=== PATIENT | female | born 1960 | race African-American/Black ===

== ENCOUNTER 2017-11-21 17:23 | Inpatient (IN) | payer MEDICAID, OTHER ==
[~2017-11-21] VITALS: Ht 170.2 cm; Wt 105.2 kg
[2017-11-21] MEDS ORDERED: LISI-661 PO (17:31)
[2017-11-21] MEDS ORDERED: HYDR25TA PO (17:31)
[2017-11-21 18:49] LABS: BASOPHILS % (AUTO) 0.3 % (0.0-2.0); EOSINOPHILS % (AUTO) 2.3 % (1.0-6.0); HEMOGLOBIN 13.4 g/dL (12.0-16.0); LYMPHOCYTES # (AUTO) 1.1 K/uL (1.0-4.8); LYMPHOCYTES % (AUTO) 32.2 % (22.0-44.0); MEAN CORPUSCULAR HGB CONC 33.6 G/dL (31.0-37.0); MEAN CORPUSCULAR VOLUME 87 fL (80-100); MONOCYTES # (AUTO) 0.3 K/uL (0.1-1.0); MONOCYTES % (AUTO) 9.5 % (2.0-9.0); NEUTROPHILS # (AUTO) 1.9 K/uL (1.8-7.7); NEUTROPHILS % (AUTO) 55.7 % (40.0-70.0); PLATELET COUNT (AUTO) 170 K/uL (150-450); RED BLOOD CELL COUNT(AUTO) 4.62 MIL/uL (4.00-5.20); RED CELL DISTRIBUTION WIDTH 14.4 % (11.5-14.5)
[2017-11-21 19:00] LABS: ANION GAP 9 mmol/L (8-16); CALCIUM, TOTAL 9.1 mg/dL (8.8-10.5); CARBON DIOXIDE 29 mmol/L (22-29); CHLORIDE 99 mmol/L (98-107); CREATININE 0.78 mg/dL (0.60-1.30); GLOMERULAR FILTR. RATE CALC > 60 mL/min (>60); GLUCOSE,RANDOM 139 mg/dL (70-110); POTASSIUM 3.1 mmol/L (3.5-5.1); SODIUM SERUM 137 mmol/L (136-145); UREA NITROGEN, BLOOD 7 mg/dL (7-18)
[2017-11-21 19:07] LABS: ALANINE AMINOTRANSFERASE 34 U/L (12-78); ALBUMIN 3.7 g/dL (3.4-5.0); ALKALINE PHOSPHATASE 75 U/L (46-116); ASPARTATE AMINOTRANSFERASE 51 U/L (15-37); BILIRUBIN,TOTAL 0.5 mg/dL (0.1-1.0)
[2017-11-21] MEDS ORDERED: POTASSIUM CHLORIDE 20 MEQ ER TABLET PO ONE (19:45)
[2017-11-21] MEDS: TraMADol HCL 50 MG TABLET PO ONE ×2 (19:47→19:54)
[2017-11-21] MEDS ORDERED: IBUPROFEN 600 MG TABLET PO ONE (20:00)
[2017-11-21] MEDS ORDERED: HALOPERIDOL 5 MG TABLET PO PRN (21:15)
[2017-11-21] MEDS ORDERED: LORazepam 2 MG TABLET PO PRN (21:15)
[2017-11-21] MEDS ORDERED: ZOLPIDEM TARTRATE 10 MG TABLET PO PRN (21:15)
[2017-11-22] VITALS: BP 132/89
[2017-11-22] MEDS ORDERED: INFLUENZA VIRUS VACCINE QVS 2017-18 (3YR+)/PF 60 MCG/0.5 ML SYRINGE IM ONE (02:00)
[2017-11-22 08:12] VITALS: BP 126/70
[2017-11-22 08:18] LABS: HEMOGLOBIN A1C 5.9 % (4.5-6.2)
[2017-11-22 08:36] LABS: FREE T4 (FREE THYROXINE) 1.03 ng/dL (0.76-1.46); POTASSIUM 3.8 mmol/L (3.5-5.1); THYROID STIMULATING HORMONE 1.82 uIU/mL (0.36-3.74)
[2017-11-22] MEDS: HYDROCHLOROTHIAZIDE 25 MG TABLET PO SCH (09:19)
[2017-11-22] MEDS: AmLODIPine BESYLATE 2.5 MG TABLET PO SCH (16:33)
[2017-11-22 17:00] VITALS: BP 120/66
[2017-11-22] MEDS: OLANZapine 5 MG RAPDIS TABLET PO SCH (20:08)
[2017-11-23 01:14] VITALS: BP 120/67
[2017-11-23 09:01] VITALS: BP 149/86
[2017-11-23] MEDS: HYDROCHLOROTHIAZIDE 25 MG TABLET PO SCH (09:09)
[2017-11-23 16:40] VITALS: BP 123/76
[2017-11-23] MEDS: AmLODIPine BESYLATE 2.5 MG TABLET PO SCH (16:56)
[2017-11-23] MEDS: OLANZapine 5 MG RAPDIS TABLET PO SCH (20:27)
[2017-11-24 01:30] VITALS: BP 146/83
[2017-11-24 08:27] VITALS: BP 141/82
[2017-11-24] MEDS: HYDROCHLOROTHIAZIDE 25 MG TABLET PO SCH (08:29)
[2017-11-24 16:00] VITALS: BP 116/74
[2017-11-24] MEDS: AmLODIPine BESYLATE 2.5 MG TABLET PO SCH (16:19)
[2017-11-24] MEDS: OLANZapine 5 MG RAPDIS TABLET PO SCH (21:05)
[2017-11-25 00:43] VITALS: BP 106/71
[2017-11-25 08:35] VITALS: BP 113/64
[2017-11-25] MEDS: HYDROCHLOROTHIAZIDE 25 MG TABLET PO SCH (08:44)
[2017-11-25 16:00] VITALS: BP 105/71
[2017-11-25] MEDS: AmLODIPine BESYLATE 2.5 MG TABLET PO SCH (16:13)
[2017-11-25] MEDS: OLANZapine 5 MG RAPDIS TABLET PO SCH (20:17)
[2017-11-26 06:34] VITALS: BP 118/70
[2017-11-26 08:29] VITALS: BP 118/67
[2017-11-26] MEDS: HYDROCHLOROTHIAZIDE 25 MG TABLET PO SCH (09:04)
[2017-11-26 16:16] VITALS: BP 121/71
[2017-11-26] MEDS: AmLODIPine BESYLATE 2.5 MG TABLET PO SCH (17:19)
[2017-11-26] MEDS: OLANZapine 5 MG RAPDIS TABLET PO SCH (20:45)
[2017-11-27] MEDS ORDERED: HYDR25TA PO ×2 (05:51→11:02)
[2017-11-27] MEDS ORDERED: AMLO2.5T PO ×2 (05:51→11:02)
[2017-11-27] MEDS ORDERED: OLAN5TAB40 PO (05:52)
[2017-11-27 06:46] VITALS: BP 102/60
[2017-11-27 08:36] VITALS: BP 116/62
[2017-11-27] MEDS: HYDROCHLOROTHIAZIDE 25 MG TABLET PO SCH (08:55)
== END 2017-11-27 13:55 | disposition home or self-care (01) | DRG 750 ==
LOC: EMS 17:23 → B2S 21:15
PROVIDERS: ADMIT Psychiatry & Neurology Psychiatry; ATTEND Psychiatry & Neurology Child & Adolescent Psychiatry
PROC: 3E0234Z Introduction of Serum, Toxoid and Vaccine into Muscle, Percutaneous Approach (ICD-10-PCS; principal; 2017-11-22)
DX: F25.9 Schizoaffective disorder, unspecified (principal); Z91.14 Patient's other noncompliance with medication regimen; I10 Essential (primary) hypertension; F41.9 Anxiety disorder, unspecified; Z96.649 Presence of unspecified artificial hip joint; I83.90 Asymptomatic varicose veins of unspecified lower extremity; F17.210 Nicotine dependence, cigarettes, uncomplicated; Z79.899 Other long term (current) drug therapy; Z59.0 Homelessness; Z88.5 Allergy status to narcotic agent; Z23 Encounter for immunization
CPT/HCPCS: 83036; 84132; 84439; 84443; 99285; G0480